=== PATIENT | female | born 1985 | race American Indian/Alaskan Native ===

== ENCOUNTER 2019-04-23 21:18 | Emergency (ER) | payer SELFPAY ==
--- NOTE | 2019-04-23 21:40 | Event Note ---
ED Screening Note Date of service: 04/23/19 Time: 21:34 ED Screening Note: This is a 33 y.o. F. that presents to the ER with right flank pain for 2-3 days. + urinary frequency, right flank pain, vaginal discharge - dysuria, hematuria LMP 03/31/2019 This initial assessment/diagnostic orders/clinical plan/treatment(s) is/are subject to change based on patients health status, clinical progression and re- assessment by fellow clinical providers in the ED. Further treatment and workup at subsequent clinical providers discretion. Patient/guardian urged not to elope from the ED as their condition may be serious if not clinically assessed and managed. Initial orders include: Labs and CT of abdomen and pelvis
[2019-04-23 22:09] LABS: Basophils # (Auto) 0.1 K/mm3 (0.0-0.1); Basophils % (Auto) 0.8 % (0.0-1.8); Eosinophils # (Auto) 0.1 K/mm3 (0.0-0.4); Hemoglobin 12.6 gm/dl (10.1-14.3); Lymphocytes # (Auto) 2.6 K/mm3 (1.2-5.4); Lymphocytes % (Auto) 27.2 % (13.4-35.0); Mean Corpuscular HGB Conc 34 % (30-34); Mean Corpuscular Volume 94 fl (79-97); Monocytes # (Auto) 0.9 K/mm3 (0.0-0.8); Monocytes % (Auto) 9.3 % (0.0-7.3); Platelet Count 395 K/mm3 (140-440); Red Blood Count 3.96 M/mm3 (3.65-5.03); Red Cell Distribution Width 12.1 % (13.2-15.2)
[2019-04-23 22:34] LABS: Alanine Aminotransferase 5 units/L (7-56); Albumin 4.1 g/dL (3.9-5); BUN/Creatinine Ratio 12; Blood Urea Nitrogen 7 mg/dL (7-17); Calcium 9.5 mg/dL (8.4-10.2); Hemolysis Index 0
[2019-04-23 22:45] LABS: Bilirubin,Urine NEG (Negative); Blood,Urine SM (Negative); Color,Urine Amber (Yellow); Mucus,Urine 3+ /HPF
--- NOTE | 2019-04-23 23:07 | Cat Scan Report ---
CT ABDOMEN AND PELVIS WITHOUT CONTRAST INDICATION / CLINICAL INFORMATION: right flank pain. TECHNIQUE: Axial CT images were obtained through the abdomen and pelvis without IV contrast. All CT scans at [facility] location are performed using CT dose reduction for ALARA by means of automated exposure control. COMPARISON: None available. FINDINGS: LOWER CHEST: No significant abnormality. LIVER: No significant abnormality. GALLBLADDER: Contracted but otherwise normal. BILE DUCTS: No significant abnormality. PANCREAS: No significant abnormality. SPLEEN: No significant abnormality. ADRENALS: No significant abnormality. RIGHT KIDNEY and URETER: No significant abnormality. LEFT KIDNEY and URETER: No significant abnormality. STOMACH and SMALL BOWEL: Fluid-filled, nondilated loops of small bowel which could represent enteriti s. COLON: No significant abnormality. APPENDIX: No significant abnormality. PERITONEUM: Trace free fluid in the pelvis. No free air. No fluid collection. LYMPH NODES: No significant adenopathy. AORTA and ARTERIES: No significant abnormality. IVC and VEINS: No significant abnormality. URINARY BLADDER: No significant abnormality. REPRODUCTIVE ORGANS: Mildly complex, loculated left adnexal cyst in the upper left pelvis. Right adne xa shows no acute abnormality. Uterus shows no acute abnormality. ADDITIONAL FINDINGS: Bilateral buttock injection granulomas. SKELETAL SYSTEM: No significant abnormality. IMPRESSION: 1. No inflammatory process or bowel obstruction. 2. No urinary tract stones or hydronephrosis. 3. Mildly complex left adnexal cystic lesion. If there are symptoms referable to the left lower quadr ant, a pelvic ultrasound with transabdominal scanning may be helpful for further evaluation. Signer Name: Grey Chan MD Signed: 04/23/2019 11:02 PM Workstation Name: [id number]
--- NOTE | 2019-04-24 00:46 | Emergency Department Report ---
HPI - General Chief Complaint: Abdominal Pain Time Seen by Provider: 04/23/19 21:33 - HPI HPI: Room 39 The pt is a 33 y/o F p/w a cc of RUQ/R flank pain x 1.5 weeks. Pt also c/o RUQ pain when she takes a deep breath in. Pt denies dysuria or hematuria. The pt states she took a bus ride to [facility] 04/06/2019. Pt states her sxs began after she arrived in [facility]. Pt also states she has had white vag d/c x 2 days that has an odor. The pt denies fever. OTC Azo has helped her flank pain temporarily ED Past Medical Hx - Past Medical History Previous Medical History?: Yes Additional medical history: hidradenitis - Surgical History Past Surgical History?: Yes Additional Surgical History: Neck fusion, Right ankle, c/s x 2 - Family History Family history: no significant - Social History Smoking Status: Former Smoker Substance Use Type: Alcohol (occ), Marijuana - Medications Home Medications: Home Medications Medication Instructions Recorded Confirmed Last Taken Type Ciprofloxacin HCl [Ciprofloxacin 500 mg PO Q12HR #14 tab 04/24/19 Unknown Rx TAB] Ibuprofen [Motrin 800 MG tab] 800 mg PO Q8HR PRN #20 tablet 04/24/19 Unknown Rx metroNIDAZOLE [Flagyl] 500 mg PO Q12HR #14 tab 04/24/19 Unknown Rx oxyCODONE /ACETAMINOPHEN [Percocet 1 - 2 tab PO Q6HR PRN #10 tablet 04/24/19 Unknown Rx 5/325] ED Review of Systems ROS: Stated complaint: PAIN IN BREATHING/R ABD/LOWER BACK PAIN Other details as noted in HPI Constitutional: denies: fever Eyes: denies: eye pain ENT: denies: throat pain Respiratory: shortness of breath Cardiovascular: denies: chest pain Gastrointestinal: abdominal pain Genitourinary: denies: dysuria, hematuria Musculoskeletal: back pain Physical Exam - Physical Exam Vital Signs: Vital Signs 04/23/19 21:22 Temperature 98.6 F Pulse Rate 114 H Respiratory 18 Rate Blood Pressure 142/80 O2 Sat by Pulse 97 Oximetry Physical Exam: GEN: WD WN F lying on stretcher in NAD HEENT: NCAT, EOMI NECK:Trachea midline, no stridor CV: rrr no m/r/g Pulm: CTAB. no resp distress ABD: soft but TTP in AD, RUQ and SP region. No guarding +BS Neuro: GCS 15 SKIN: no diaphoresis MS: no evidence of acute injury ED Course Vital Signs 04/23/19 21:22 Temperature 98.6 F Pulse Rate 114 H Respiratory 18 Rate Blood Pressure 142/80 O2 Sat by Pulse 97 Oximetry ED Medical Decision Making - Lab Data Result diagrams: 04/23/19 21:54 04/23/19 21:54 Laboratory Tests 04/23/19 04/23/19 04/23/19 21:54 21:54 21:54 WBC 9.7 RBC 3.96 Hgb 12.6 Hct 37.0 MCV 94 MCH 32 MCHC 34 RDW 12.1 L Plt Count 395 Lymph % (Auto) 27.2 Alfalfa % (Auto) 9.3 H Eos % (Auto) 1.0 Baso % (Auto) 0.8 Lymph # 2.6 Alfalfa # 0.9 H Eos # 0.1 Baso # 0.1 Seg Neutrophils % 61.7 Seg Neutrophils # 6.0 D-Dimer Sodium 139 Potassium 3.6 Chloride 101.3 Carbon Dioxide 24 Anion Gap 17 BUN 7 Creatinine 0.6 L Estimated GFR > 60 BUN/Creatinine Ratio 12 Glucose 105 H Calcium 9.5 Total Bilirubin 0.40 AST 12 ALT 5 L Alkaline Phosphatase 80 Total Protein 8.0 Albumin 4.1 Albumin/Globulin Ratio 1.1 Lipase 18 HCG, Qual Negative Urine Color Urine Turbidity Urine pH Ur Specific Hudson Urine Protein Urine Glucose (UA) Urine Ketones Urine Blood Urine Nitrite Urine Bilirubin Urine Urobilinogen Ur Leukocyte Esterase Urine WBC (Auto) Urine RBC (Auto) U Epithel Cells (Auto) Urine Mucus 04/23/19 04/24/19 22:33 00:33 WBC RBC Hgb Hct MCV MCH MCHC RDW Plt Count Lymph % (Auto) Alfalfa % (Auto) Eos % (Auto) Baso % (Auto) Lymph # Alfalfa # Eos # Baso # Seg Neutrophils % Seg Neutrophils # D-Dimer 4016.03 H Sodium Potassium Chloride Carbon Dioxide Anion Gap BUN Creatinine Estimated GFR BUN/Creatinine Ratio Glucose Calcium Total Bilirubin AST ALT Alkaline Phosphatase Total Protein Albumin Albumin/Globulin Ratio Lipase HCG, Qual Urine Color Marly Urine Turbidity Slightly-cloudy Urine pH 6.0 Ur Specific Hudson 1.026 Urine Protein 30 mg/dl Urine Glucose (UA) Neg Urine Ketones 20 Urine Blood Sm Urine Nitrite Neg Urine Bilirubin Neg Urine Urobilinogen 4.0 Ur Leukocyte Esterase Mod Urine WBC (Auto) 18.0 H Urine RBC (Auto) 19.0 U Epithel Cells (Auto) 11.0 Urine Mucus 3+ - Radiology Data Radiology results: report reviewed (ct chest), image reviewed (ct chest) [facility] [address] [place] [address] Cat Scan Report Signed Patient: ANITA CRUZ MR#: [id number] : 1985 Acct:[id number] Age/Sex: 33 / F ADM Date: 04/23/19 Loc: ED Attending Dr: Ordering Physician: DANIEL CALHOUN MD Date of Service: 04/24/19 Procedure(s): CT angio chest Accession Number(s): [id number] cc: DANIEL CALHOUN MD CTA CHEST WITH CONTRAST INDICATION / CLINICAL INFORMATION: pleurisy, SOB. Chest pain. TECHNIQUE: Axial CT images were obtained through the chest after injection of 100 mL Omnipaque 350 IV contrast. 3 plane MIP and/or 3D reconstructions were produced. All CT scans at this location are performed using CT dose reduction for ALARA by means of automated exposure control. COMPARISON: None available. FINDINGS: PULMONARY ARTERIES: No pulmonary emboli. THORACIC AORTA: No significant abnormality. HEART: No significant abnormality. CORONARY ARTERIES: No significant calcification. MEDIASTINUM / ANNA: No significant abnormality. PLEURA: No pleural effusion. No pneumothorax. LUNGS: No acute air space or interstitial disease. ADDITIONAL FINDINGS: 9 mm hypodense nodule in the left lobe of the thyroid gland. UPPER ABDOMEN: No acute findings. SKELETAL STRUCTURES: No significant osseous abnormality. IMPRESSION: 1. No CT evidence for pulmonary embolism. 2. No acute findings in the chest. 3. 9 mm incidental thyroid nodule. No follow-up is needed. Please see below for more information. INCIDENTAL THYROID NODULE RECOMMENDATION Recommendation: No follow-up recommended. Nonpalpable nodules detected on US or other anatomic imaging studies are termed incidentally discovered nodules or incidentalomas. Nonpalpable nodules have the same risk of malignancy as palpable nodules with the same size. Generally, only nodules >1 cm should be evaluated, since they have a greater potential to be clinically significant cancers. (GINGER, 2009). Follow up for incidental thyroid nodules <1 cm is not recommended. Diagnostic thyroid ultrasound is recommended only if the patient meets the following criteria: (1) < 35 years of age with normal life expectancy and nodule >= 1 cm. (2) >= 35 years of age with normal life expectancy and nodule >= 1.5 cm. ACR Ultrasound for incidental thyroid nodules: [email or web address] Signer Name: Grey Chan MD Signed: 04/24/2019 2:07 AM Workstation Name: [id number] Transcribed By: DT Dictated By: Nimesh Chan MD Electronically Authenticated By: Nimesh Chan MD Signed Date/Time: 04/24/19206 DD/ 2 TD/TT: - Differential Diagnosis pyelonephritis, renal colic, PE, bacterial vaginosis Critical care attestation.: If time is entered above; I have spent that time in minutes in the direct care of this critically ill patient, excluding procedure time. ED Disposition Clinical Impression: Acute right flank pain, Pyelonephritis, Vaginal discharge Disposition: TO HOME OR SELFCARE Is pt being admited?: No Does the pt Need Aspirin: No Condition: Stable Instructions: Abdominal Pain (ED) Prescriptions: Ciprofloxacin HCl [Ciprofloxacin TAB] 500 mg PO Q12HR #14 tab metroNIDAZOLE [Flagyl] 500 mg PO Q12HR #14 tab Ibuprofen [Motrin 800 MG tab] 800 mg PO Q8HR PRN #20 tablet PRN Reason: Pain, Moderate (4-6) oxyCODONE /ACETAMINOPHEN [Percocet 5/325] 1 - 2 tab PO Q6HR PRN #10 tablet PRN Reason: Pain Referrals: SARATH PAUL MD [Primary Care Provider] - 3-5 Days IBETH WAYNE MD [Staff Physician] - 3-5 Days (Dr Wayne is an [employer]. Please follow up with her for further evaluation) Time of Disposition: 02:24
[2019-04-24] MEDS ORDERED: LIDOCAINE-MPF (1%) 10 MG/1 ML VIAL 5 ML INFILTRATI ONE (00:48)
[2019-04-24] MEDS ORDERED: AZITHROMYCIN 1 GM ORAL PWDR PACKET PO ONE (00:48)
[2019-04-24] MEDS ORDERED: IBUPROFEN 800 MG TAB PO ONE (01:09)
[2019-04-24 01:29] VITALS: BP 110/73
--- NOTE | 2019-04-24 02:11 | Cat Scan Report ---
CTA CHEST WITH CONTRAST INDICATION / CLINICAL INFORMATION: pleurisy, SOB. Chest pain. TECHNIQUE: Axial CT images were obtained through the chest after injection of 100 mL Omnipaque 350 IV contrast. 3 plane MIP and/or 3D reconstructions were produced. All CT scans at this location are performed usin g CT dose reduction for DARIN by means of automated exposure control. COMPARISON: None available. FINDINGS: PULMONARY ARTERIES: No pulmonary emboli. THORACIC AORTA: No significant abnormality. HEART: No significant abnormality. CORONARY ARTERIES: No significant calcification. MEDIASTINUM / ANNA: No significant abnormality. PLEURA: No pleural effusion. No pneumothorax. LUNGS: No acute air space or interstitial disease. ADDITIONAL FINDINGS: 9 mm hypodense nodule in the left lobe of the thyroid gland. UPPER ABDOMEN: No acute findings. SKELETAL STRUCTURES: No significant osseous abnormality. IMPRESSION: 1. No CT evidence for pulmonary embolism. 2. No acute findings in the chest. 3. 9 mm incidental thyroid nodule. No follow-up is needed. Please see below for more information. INCIDENTAL THYROID NODULE RECOMMENDATION Recommendation: No follow-up recommended. Nonpalpable nodules detected on US or other anatomic imaging studies are termed incidentally discover ed nodules or incidentalomas. Nonpalpable nodules have the same risk of malignancy as palpable nodule s with the same size. Generally, only nodules >1 cm should be evaluated, since they have a greater po tential to be clinically significant cancers. (GINGER, 2009). Follow up for incidental thyroid nodules <1 cm is not recommended. Diagnostic thyroid ultrasound is recommended only if the patient meets the following criteria: (1) < 35 years of age with normal life expectancy and nodule >= 1 cm. (2) >= 35 years of age with normal life expectancy and nodule >= 1.5 cm. ACR Ultrasound for incidental thyroid nodules: [email or web address] Signer Name: Grey Chan MD Signed: 04/24/2019 2:07 AM Workstation Name: [email or web address]
== END 2019-04-24 02:55 | disposition home or self-care (01) ==
LOC: ED 21:18
DX: N12 Tubulo-interstitial nephritis, not specified as acute or chronic (principal); N89.8 Other specified noninflammatory disorders of vagina; Z87.891 Personal history of nicotine dependence; Z79.899 Other long term (current) drug therapy
CPT/HCPCS: 36415; 71275; 74176; 80053; 81001; 83690; 84703; 85025; 85379; 87086; 87210; 87591; 96372; 99284; J0696; Q9967